=== PATIENT | male | born 1960 | race Caucasian/White ===

== ENCOUNTER 2017-07-13 00:17 | Emergency (ER) | payer MEDICARE ==
[~2017-07-13] VITALS: Ht 177.8 cm; Wt 140.6 kg
[2017-07-13] MEDS ORDERED: LANTUS100 UNITS/ (00:39)
[2017-07-13] MEDS ORDERED: GLUCOPHAGE500 MG PO (00:40)
[2017-07-13] MEDS ORDERED: NAPROXEN500 MG PO (01:24)
== END 2017-07-13 01:39 | disposition home or self-care (01) ==
LOC: ED 00:17
DX: S29.012A Strain of muscle and tendon of back wall of thorax, initial encounter (principal); I10 Essential (primary) hypertension; Z87.891 Personal history of nicotine dependence; Z79.4 Long term (current) use of insulin; X50.9XXA Other and unspecified overexertion or strenuous movements or postures, initial encounter; W19.XXXA Unspecified fall, initial encounter
CPT/HCPCS: 71046; 72070; 99283